=== PATIENT | male | born 1955 | race Caucasian/White ===

== ENCOUNTER 2022-02-17 16:40 | Emergency (ER) | payer MEDICARE ==
[2022-02-17] MEDS ORDERED: Metoclopramide 10 MG/2 ML SDV IVPUSH ONE (17:13)
[2022-02-17] MEDS ORDERED: Dextrose 5%-0.9% NaCl 1,000 ML IV SCH (17:15)
[2022-02-17] MEDS ORDERED: Lidocaine 2% Jelly 10 ML Urojet MUCMEM ONE (18:40)
[2022-02-17] MEDS ORDERED: Lidocaine 2% Jelly 10 ML Urojet ONE (18:42)
[2022-02-17] MEDS ORDERED: Iopamidol 612 MG/ML 100 ML Bottle IVPUSH ONE (18:47)
[2022-02-17] MEDS ORDERED: Sodium Chloride 0.9% 10 ML Syringe FLUSH ONE (18:47)
[2022-02-17] MEDS ORDERED: Sodium Chloride 0.9% 100 ML IV SCH (19:00)
[2022-02-17] MEDS ORDERED: Iopamidol 755 Mg/ML 100 ML Bottle IVPUSH ONE (19:17)
== END 2022-02-17 22:35 | disposition home or self-care (01) ==
LOC: JD.ED 16:40
DX: R53.1 Weakness (principal); R11.2 Nausea with vomiting, unspecified; I10 Essential (primary) hypertension; Z79.899 Other long term (current) drug therapy; Z88.6 Allergy status to analgesic agent
CPT/HCPCS: 36415; 51702; 71045; 71275; 80053; 80307; 81001; 82553; 83605; 83735; 83880; 84484; 85025; 85379; 85610; 85652; 85730; 86140; 87040; 93005; 96374; 99285; J2765; J3490; J7042; Q9967; 93010; 99284